=== PATIENT | male | born 1980 | race Caucasian/White ===

== ENCOUNTER → 2017-04-15 | Outpatient (CLI) | payer MEDICAID, OTHER ==
--- NOTE | 2017-04-15 23:28 | MR ---
EXAMINATION TYPE: MR ankle RT wo con DATE OF EXAM: 04/15/2017 COMPARISON: NONE HISTORY: Right ankle pain swelling clicking redness with limited ROM Standard multiplanar, multisequence MRI departmental protocol Multiplanar, multisequence images of the right ankle were acquired. FINDINGS: The ankle mortise is anatomic. Collateral ligaments appear intact. The Achilles tendon is i ntact. Plantar fascia appears normal. The medial and lateral flexor tendons of the ankle are intact. There is subcutaneous edema around the ankle joint medially laterally and posteriorly. The joint spac es are fairly well-maintained. There is very small ankle joint effusion. I see no fracture line. Ther e is no evidence of focal bony destructive process. IMPRESSION: No evidence of fracture. No evidence of ligament or tendon tear. Small joint effusion consistent with mild synovitis. Mild subcutaneous edema around the ankle joint.
== END | disposition home or self-care (01) ==
LOC: RADMRIMAIN 20:45
PROVIDERS: ATTEND Orthopaedic Surgery
DX: M25.471 Effusion, right ankle (principal); Z98.890 Other specified postprocedural states